=== PATIENT | male | born 1960 | race Hispanic/Latino ===

== ENCOUNTER → 2018-12-06 | Outpatient (CLI) | payer BC ==
[~2018-12-06] MED LIST: ALLOPURINOL100 MG PO; HYDROCHLOROTH12.5 M1 PO; LOSARTAN POTASS25 MG PO; METOPROLOL TART50 MG PO; ONDANSETRO4 MG/UDTAB PO; POTASSIUM CHLO10 ME1 PO; SOD CITRATE-CIT15 ML PO; STOOL SOFTENER; TYLENOL WITH C1 EACH PO
--- NOTE | 2018-12-06 09:26 | Diagnostic Imaging Report ---
Exam: KUB - 2 views Clinical History: Renal calculus. Comparison: None. Findings: There are adjacent 6 mm and 7 mm calcifications overlying the expected location of the right proximal ureter at the inferior aspect of the L3 level. There is a 5 mm calcification overlying the left lower kidney. There is a 3 mm calcification at the left L3 level which may be in the proximal ureter or may be enteric. Nonobstructive bowel gas pattern. No acute osseous abnormality. Impression: Suspected 5 mm left lower pole renal stone and adjacent 6 and 7 mm right proximal ureteral stones. A 3 mm proximal left ureteral stone versus enteric calcification. Signed by: Dr. Jose Marshall MD on 12/06/2018 9:23 AM
== END ==
LOC: RAD 08:43
PROVIDERS: ATTEND Urology
DX: N20.0 Calculus of kidney (principal)
CPT/HCPCS: 74018

== ENCOUNTER → 2019-01-10 | Day surgery (SDC) | payer BC ==
--- NOTE | 2019-01-08 15:45 | Diagnostic Imaging Report ---
EXAMINATION: CHEST 2 VIEWS INDICATION: Pre-operative. COMPARISON: None FINDINGS: TUBES and LINES: None. LUNGS: Lungs are well inflated. Lungs are clear. There is no evidence of pneumonia or pulmonary edema. PLEURA: No pleural effusion or pneumothorax. HEART AND MEDIASTINUM: The cardiomediastinal silhouette is moderately enlarged. Atherosclerotic calcifications of the aortic arch. BONES AND SOFT TISSUES: No acute osseous abnormality. UPPER ABDOMEN: No free air under the diaphragm. IMPRESSION: Cardiomegaly without pulmonary edema. Signed by: Dr. Jose Marshall MD on 01/08/2019 3:42 PM
[2019-01-08 17:02] LABS: BASOPHILS % 0.8 % (0.0-1.0); EOSINOPHILS # (AUTO) 0.2 (0.0-0.4); HEMATOCRIT 42.5 % (38.2-49.6); HEMOGLOBIN 14.6 g/dL (14.0-18.0); LYMPHOCYTES # (AUTO) 1.5 (1.0-3.2); LYMPHOCYTES % 30.2 % (18.0-39.1); MEAN CORPUSCULAR HEMOGLOBIN 30.5 pg (28-32); MEAN CORPUSCULAR HGB CONC 34.4 g/dL (31-35); MEAN CORPUSCULAR VOLUME 88.9 fL (81-99); MONOCYTES # (AUTO) 0.6 (0.2-0.8); MONOCYTES % 11.9 % (4.4-11.3); NEUTROPHILS # (AUTO) 2.7 (2.1-6.9); NEUTROPHILS % 52.7 % (38.7-80.0); PLATELET COUNT 174 x10e3/uL (140-360); RED BLOOD COUNT 4.78 x10e6/uL (4.3-5.7)
[~2019-01-10] MED LIST changes: +ALBUTEROL SULFATE HFA 8GM INHALATION AEROSOL INH ONE; +ATORVASTATIN CA20 MG PO; +BELLADONNA/OPIUM 60 MG SUPP PR ONE; +CEFAZOLIN SOD 1 GM/NS 50ML 50 ML IV ONE; +DESFLURANE 240 ML BTL INH ONE; +DEXAMETHASONE SOD PHOS INJ 4 MG/ML VIAL ONE; +EPHEDRINE SULFATE INJ 50 MG/10 ML SYR ONE; +FENOFIBRATE145 MG PO; +FENTANYL CITRATE/PF 100MCG/2 ML INJ ONE; +IOPAMIDOL 610MG/1ML 300 MG/ML VIAL IV ONE; +LIDOCAINE HCL 2% LOCAL INJ 5 ML SDV VIAL INJ ONE; +MIDAZOLAM HCL 2 MG/2 ML VIAL ONE; +ONDANSETRON HCL INJ 2MG/ML 2ML 2 MG/ML VIAL ONE; +PROPOFOL IV EMULSION 10 MG/ML 20 ML VIAL ONE; +SUCCINYLCHOLINE 200 MG/10 ML SYR ONE
--- OUTSIDE RECORDS SUMMARY | 2019-01-10 07:02 | XMS REPORT ---
Author Author [facility] Address Unknown Phone Unavailable Care Team Providers Care Skip Loader Name Role Phone DEBBIE FISCHER Unavailable Unavailable Problems This patient has no known problems. Allergies, Adverse Reactions, Alerts This patient has no known allergies or adverse reactions. Medications This patient has no known medications. Results Test Description Test Time Test Comments Text Results Atomic Results Result Comments CHEST 2 VIEWS 2019-01-08 15:39:00 [place] [address] Patient Name: JACKIE ARREAGA MR #: [id number] : 1960 Age/Sex: 58/M Req #: [id number] [facility] Physician: Ordered by: DEBBIE FISCHER MD Report #: [id number] Location: OR Room/Bed: Procedure: [id number] DX/CHEST 2 VIEWS Exam Date: 01/08/19 Exam Time: 1500 REPORT STATUS: Signed EXAMINATION: CHEST 2 VIEWS INDICATION: Pre-operativ e. COMPARISON: None FINDINGS: TUBES and LINES: None. LUNGS: Lungs are well inflated. Lungs are clear. There is no evidence of pneumonia or pulmonary edema. PLEURA: No pleural effusion or pneumothorax. HEART AND MEDIASTINUM: The cardiomediastinal silhouette is moderately enlarged. Atherosclerotic calcifications of the aortic arch. BONES AND SOFT TISSUES: No acute osseous abnormality. UPPER ABDOMEN: No free air under the diaphragm. IMPRESSION: Cardiomegaly without pulmonary edema. Signed by: Dr. Denys Gamble MD on 01/08/2019 3:42 PM Dictated By: DENYS GAMBLE MD 41 Transcribed By: BENTLEY on 01/08/191541 COPY TO: DEBBIE FISCHER MD ABDOMEN-1VIEW (KUB) 2018-12-06 09:16:00 [place] [address] Patient Name: JACKIE ARREAGA MR #: [id number] : 1960 Age/Sex: 58/M Req #: [id number] Adm Physician: Ordered by: DEBBIE FISCHER MD Report #: [id number] Location: [facility] Room/Bed: Procedure: [id number] DX/ABDOMEN-1VIEW (KUB) Exam Date: Exam Time: REPORT STATUS: Signed Exam: KUB - 2 views Clinical History: Renal calculus. Com parison: None. Findings: There are adjacent 6 mm and 7 mm calcifications overlying the expected location of the right proximal ureter at the inferior aspect of the L3 level. There is a 5 mm calcification overlying the left lower kidney. There is a 3 mm calcification at the left L3 level which may be in the proximal ureter or may be enteric. Nonobstructive bowel gas pattern. No acute osseous abnormality. Impression: Suspected 5 mm left lower pole renal stone and adjacent 6 and 7 mm right proximal ureteral stones. A 3 mm proximal left ureteral stone versus enteric calcification. Signed by: Dr. Denys Gamble MD on 12/06/2018 9:23 AM Dictated By: DENYS GAMBLE MD 2 Transcribed By: BENTLEY on 12/06/18922 COPY TO: DEBBIE FISCHER MD
[2019-01-10 11:30] VITALS: BP 141/78
--- NOTE | 2019-01-10 23:03 | Operative Report ---
DATE OF PROCEDURE: 01/10/2019 SURGEON: Evelia Troy MD SERVICE: Urology. PREOPERATIVE DIAGNOSES: 1. Suspected stones in the right kidney. 2. Microhematuria, postoperative stones were not identified. Calcifications on the right side out of the collecting system. PROCEDURE: 1. Cystoscopy and retrograde pyelograms under fluoroscopic control. 2. Interpretation of x-ray, radiologist not present. 3. Supervision of fluoroscopy. TOP FRAME MAKER: None. ANESTHESIA: General. CLINICAL INDICATION NOTE: This is a 58-year-old patient, KUB suggests a stone on the right side. He did have stones in the past. The patient was brought for reassessment and possible lithotripsy. DESCRIPTION OF THE PROCEDURE AND FINDING: After proper level of anesthesia was achieved, the patient was placed in the supine position and fluoroscopy failed to localize clearly the stone with the possibility that this is out of the collecting system. The patient was placed in lithotomy position, prepped and draped in a sterile fashion. Cystoscopy was done. An open-end catheter was inserted to the right side and retrograde pyelogram did not demonstrate the stone. The calcification appeared to be out of the ureteropelvic junction. The left side is unremarkable. The patient tolerated the procedure well and was transferred in satisfactory condition to recovery room. He will be followed as an outpatient. Evelia Troy MD NH/MODL /[id number]
== END | disposition home or self-care (01) ==
LOC: OR 06:50
PROVIDERS: ATTEND Urology
DX: R31.29 Other microscopic hematuria (principal); N28.89 Other specified disorders of kidney and ureter; Z87.442 Personal history of urinary calculi; R06.83 Snoring; I10 Essential (primary) hypertension; E78.5 Hyperlipidemia, unspecified; K21.9 Gastro-esophageal reflux disease without esophagitis; Z01.810 Encounter for preprocedural cardiovascular examination; Z01.812 Encounter for preprocedural laboratory examination; Z01.818 Encounter for other preprocedural examination
CPT/HCPCS: 36415; 52005; 71046; 85025; 93005; C1758; J0690; J1100; J2001; J2250; J2405; J2704; Q9967

== ENCOUNTER → 2019-03-15 | Outpatient (CLI) | payer BC ==
[~2019-03-15] MED LIST changes: -ALBUTEROL SULFATE HFA 8GM INHALATION AEROSOL INH ONE; -BELLADONNA/OPIUM 60 MG SUPP PR ONE; -CEFAZOLIN SOD 1 GM/NS 50ML 50 ML IV ONE; -DESFLURANE 240 ML BTL INH ONE; -DEXAMETHASONE SOD PHOS INJ 4 MG/ML VIAL ONE; -EPHEDRINE SULFATE INJ 50 MG/10 ML SYR ONE; -FENTANYL CITRATE/PF 100MCG/2 ML INJ ONE; -IOPAMIDOL 610MG/1ML 300 MG/ML VIAL IV ONE; -LIDOCAINE HCL 2% LOCAL INJ 5 ML SDV VIAL INJ ONE; -MIDAZOLAM HCL 2 MG/2 ML VIAL ONE; -ONDANSETRON HCL INJ 2MG/ML 2ML 2 MG/ML VIAL ONE; -PROPOFOL IV EMULSION 10 MG/ML 20 ML VIAL ONE; -SUCCINYLCHOLINE 200 MG/10 ML SYR ONE
--- NOTE | 2019-03-15 09:42 | Diagnostic Imaging Report ---
CT of the abdomen and pelvis, without contrast, 03/15/2019. History: Renal calculus. Comparison: CT 10/21/2016. Abdominal x-ray 12/06/2018. Technique: Multidetector CT scanning of the abdomen and pelvis was performed from the level of the lung bases to the inferior pubic rami without intravenous or oral contrast. Coronal and sagittal multiplanar reformations were obtained. RADIATION DOSE: Total DLP: 854 mGy*cm Dose modulation, iterative reconstruction, and/or weight based adjustment of the mA/kV was utilized to reduce the radiation dose to as low as reasonably achievable. Discussion: Examination is limited without contrast. Lung bases: There is bibasilar atelectasis. Calcified granulomata are present at the left lung base. Abdomen: There is no evidence of nephrolithiasis or hydronephrosis involving either kidney. Both ureters are normal in size. Cortical scarring is again noted involving the inferior aspect of the left kidney. There is diffuse low-density of the liver. The gallbladder, biliary tree, spleen, pancreas, and adrenal glands are unremarkable. The abdominal aorta is within normal limits. There is no bowel dilatation. There is no evidence of adenopathy or free fluid. Calcified mesenteric lymph nodes are present accounting for the calcifications seen on x-ray. A small fat-containing umbilical hernia is present. Pelvis: The bladder, prostate, and seminal vesicles are unremarkable. Small fat-containing inguinal hernias are present bilaterally. There is no evidence of free fluid or adenopathy. Bones and soft tissues: Degenerative changes are present throughout the lumbar spine without evidence of lytic or sclerotic lesion. IMPRESSION: 1. No evidence of nephrolithiasis. Calcifications seen on x-ray are secondary to calcified mesenteric nodes.. 2. Fatty infiltration of the liver. 3. Small fat-containing umbilical hernia. Otherwise unremarkable noncontrast exam. Signed by: Rey Jurado on 03/15/2019 9:38 AM
== END ==
LOC: CT 08:43
PROVIDERS: ATTEND Urology
DX: N20.0 Calculus of kidney (principal)
CPT/HCPCS: 74176

== ENCOUNTER → 2020-06-23 | Outpatient (CLI) | payer BC ==
[~2020-06-23] MED LIST changes: +DIATRIZOATE MEGL/DIATRIZOA SOD 30 ML BTL PO ONE; +IOPAMIDOL 370 MG/ML 200 ML INFUS..BTL INJ ONE; +SODIUM CHLORIDE 0.9% 50ML 50 ML ONE
--- NOTE | 2020-06-23 13:14 | Diagnostic Imaging Report ---
ADDENDUM #1 Please note there are 2 hypoattenuating areas in the liver dome one on the right and one on the left side. In the absence of contrast medium, the exact nature is difficult to ascertain. Liver protocol CT or MRI may be obtained for further evaluation. Signed by: Saleem Austin MD on 06/23/2020 1:26 PM ORIGINAL REPORT EXAM: CT ABDOMEN AND PELVIS WITHOUT CONTRAST FOR RENAL STONES CLINICAL INDICATION: Suspected calculus of kidney TECHNIQUE: CT abdomen and pelvis was performed, without IV or oral contrast, as per department renal stone protocol. Axial, sagittal, and coronal reconstructions were obtained. IV CONTRAST: Not administered, limiting sensitivity of this exam for evaluation of solid visceral organs, vascular structures, and retroperitoneum. ORAL CONTRAST:Not administered, limiting sensitivity of this exam for evaluation of bowel, retroperitoneum, and intraabdominal fluid collections. RADIATION DOSE REDUCTION: This exam was performed according to the departmental dose-optimization program which includes automated exposure control, adjustment of the mA and/or kV according to patient size and/or use of iterative reconstruction technique. COMPARISON: None FINDINGS: LOWER CHEST: Aortic annulus and coronary artery calcification. RIGHT KIDNEY: Normal size and contour. No nephrolithiasis. No hydronephrosis. RIGHT URETER: Normal course and caliber. No ureterolithiasis. LEFT KIDNEY: Normal size and contour. No nephrolithiasis. No hydronephrosis. LEFT URETER: Normal course and caliber. No ureterolithiasis. URINARY BLADDER: Unremarkable. No calculi. LIVER: Fatty infiltration of the liver. GALLBLADDER: No pathologic process. BILE DUCTS: No pathologic process. PANCREAS: No pathologic process. SPLEEN: No pathologic process. ADRENALS: No pathologic process. GASTROINTESTINAL TRACT: No pathologic process. APPENDIX: No inflammatory changes in region of appendix.] LYMPH NODES: No lymphadenopathy. PERITONEUM/MESENTERY: No free air, significant free fluid, mass or fluid collection. Small calcified mesenteric lymph nodes. 6 VESSELS: No vascular abnormality. ADDITIONAL RETROPERITONEAL FINDINGS: None. REPRODUCTIVE ORGANS: No pathologic process. ABDOMINAL AND PELVIC MARIA: Small fat-containing umbilical hernia area and MUSCULOSKELETAL: No pathologic process. ADDITIONAL FINDINGS: None. IMPRESSION: No evidence of urinary tract calculi. Standardized Report: [id number]. Signed by: Saleem Austin MD on 06/23/2020 1:11 PM
--- NOTE | 2020-06-23 16:31 | Diagnostic Imaging Report ---
EXAM: CT ABDOMEN WITH CONTRAST CLINICAL INDICATION: Right upper quadrant pain. Previously stone protocol CT was performed of abdomen and pelvis. A contrast-enhanced abdominal CT was performed in addition at the request of the ordering doctor. TECHNIQUE: CT abdomen was performed to the iliac crests, following the administration of contrast, as per department protocol. Axial, sagittal, and coronal reconstructions were obtained. IV CONTRAST: 100 cc of Isovue 300 ORAL CONTRAST: Not administered, limiting sensitivity of this exam for evaluation of bowel, retroperitoneum, and intraabdominal fluid collections. RADIATION DOSE REDUCTION: This exam was performed according to the departmental dose-optimization program which includes automated exposure control, adjustment of the mA and/or kV according to patient size and/or use of iterative reconstruction technique. COMPARISON: None FINDINGS: LOWER CHEST: No pathologic process in imaged portion of lower chest LIVER: No significant pathologic process GALLBLADDER: Unremarkable BILE DUCTS: No pathologic process. PANCREAS: No pathologic process. SPLEEN: No pathologic process. A small splenule at the inferior pole of the spleen is identified. ADRENALS: No pathologic process. KIDNEYS: Wall 17 mm intracortical renal hypodensity in the midpole region laterally. It is seen to the best advantage on coronal image. This cyst has some mural nodularity. Further evaluation should be performed with contrast-enhanced renal protocol CT or MRI. Bilateral small cortical renal cysts, too small to characterize. There is thinning of the posterior inferior left renal cortex situated in close proximity to the calyx. This suggests prior infection related atrophy. GASTROINTESTINAL TRACT: No pathologic process. LYMPH NODES: A few calcified lymph nodes in the mesentery. PERITONEUM/MESENTERY: No free air, significant free fluid, mass or fluid collection. VESSELS: No vascular abnormality. ADDITIONAL RETROPERITONEAL FINDINGS: None. ABDOMINAL WALL: A small fat-containing umbilical hernia. MUSCULOSKELETAL: No pathologic process. ADDITIONAL FINDINGS: None. IMPRESSION: Complex left renal cortical cyst needing further evaluation as described above. Also see the previous report dictated the same date. Standardized Report: [id number]. Signed by: Saleem Austin MD on 06/23/2020 4:28 PM
--- NOTE | 2020-06-23 19:15 | Diagnostic Imaging Report ---
Hepatobiliary Scan with Gallbladder Ejection Fraction Reason for exam: RUQ pain Report: Following intravenous administration of 6.6 millicuries of Tc-99m mebrofenin, dynamic images of the abdomen in the anterior projection were obtained through 60 minutes. An additional static image was obtained at 90 minutes. Sincalide (CCK analog) 2.0 micrograms was administered intravenously over 30 minutes with additional imaging for determination of gallbladder ejection fraction. Perfusion to the liver is normal. Extraction of tracer from the blood pool by the liver parenchyma is normal. Tracer is seen promptly within the biliary tract. Tracer is seen in the small bowel by 12 minutes post injection of tracer. The gallbladder does not fill during the initial 60 minutes of imaging but does fill adequately by 90 minutes. The gallbladder ejection fraction with administration of sincalide is 81% (normal greater than 40%). Impression: 1. Filling of the gallbladder excludes the diagnosis of acute cystic duct obstruction/acute cholecystitis. 2. Normal gallbladder ejection fraction of 81% does not support the clinical diagnosis of chronic cholecystitis/gallbladder dyskinesia. Signed by: Dr. Kelley Valdes M.D. on 06/23/2020 7:11 PM
== END ==
LOC: NM 09:15
PROVIDERS: ATTEND Surgery
DX: R10.11 Right upper quadrant pain (principal)
CPT/HCPCS: 74160; 74176; 78227; A9537; Q9967

== ENCOUNTER 2020-07-15 08:18 | Observation (INO) | payer BC ==
[~2020-07-15] VITALS: Ht 157.5 cm; Wt 107.5 kg
[~2020-07-15 08:18] MED LIST changes: -DIATRIZOATE MEGL/DIATRIZOA SOD 30 ML BTL PO ONE; +FLOMAX0.4 MG PO; +FUROSEMIDE40 MG PO; +GABAPENTIN300 MG PO; -IOPAMIDOL 370 MG/ML 200 ML INFUS..BTL INJ ONE; +LOSARTAN POTAS100 MG PO; +POTASSIUM CHLO20 ME1 PO; +ROPIVACAINE 246.25 MG, EPINEPHRINE HCL 1:1000 1ML 0.5 MG, CLONIDINE HCL 0.08 MG, KETORO... INJ ONE; -SODIUM CHLORIDE 0.9% 50ML 50 ML ONE
[2020-07-15] MEDS ORDERED: VANCOMYCIN HCL 1,000 MG ONE (09:46)
[2020-07-15] MEDS ORDERED: TRANEXAMIC ACID 1,000 MG/10 ML ML ONE (09:47)
[2020-07-15] MEDS ORDERED: SODIUM CHLORIDE 0.9% 500ML 500 ML ONE (09:47)
[2020-07-15] MEDS ORDERED: CELECOXIB 200 MG CAP ONE (09:49)
[2020-07-15] MEDS ORDERED: GABAPENTIN 300 MG CAP ONE (09:50)
[2020-07-15] MEDS ORDERED: CEFAZOLIN SOD 1 GM/NS 50ML 100 ML IV ONE (09:50)
[2020-07-15] MEDS ORDERED: DEXAMETHASONE SOD PHOS 10 MG/1 ML VIAL ONE (09:50)
[2020-07-15] MEDS ORDERED: KETOROLAC TROMETHAMINE 30 MG/ML VIAL IV PRN (12:00)
[2020-07-15] MEDS ORDERED: ACETAMINOPHEN 650 MG SUPP PR PRN (12:00)
[2020-07-15] MEDS ORDERED: DIPHENHYDRAMINE HCL INJ 50 MG/ML VIAL IV PRN (12:00)
[2020-07-15] MEDS ORDERED: HYDROCODONE/APAP 5MG-325MG TAB PO PRN (12:00)
[2020-07-15] MEDS ORDERED: DOCUSATE SODIUM 100 MG CAP PO PRN (12:00)
[2020-07-15] MEDS ORDERED: SODIUM CHLORIDE 0.9% 1000ML 1,000 ML IV SCH (12:00)
[2020-07-15] MEDS ORDERED: HYDROCODONE/APAP 7.5MG-325MG 1 EA TAB PO PRN (12:00)
[2020-07-15] MEDS ORDERED: ONDANSETRON HCL INJ 2MG/ML 2ML 2 MG/ML VIAL IV PRN (12:00)
[2020-07-15] MEDS ORDERED: MEPERIDINE HCL INJ 25 MG/ML VIAL ONE (12:13)
[2020-07-15] MEDS ORDERED: ROPIVACAINE 0.5% 5 MG/ML 30 ML SDV ONE (12:27)
[2020-07-15] MEDS ORDERED: LIDOCAINE 2%/ EPINEPHRINE 20ML MDV ONE (12:27)
[2020-07-15] MEDS ORDERED: HYDROMORPHONE 1MG/1ML INJ ONE (12:33)
[2020-07-15] MEDS ORDERED: METOCLOPRAMIDE HCL 10 MG/2ML VIAL ONE (13:21)
[2020-07-15] MEDS ORDERED: SEVOFLURANE INHAL SOLN 250 ML PEN BTL ONE (13:21)
[2020-07-15] MEDS ORDERED: FENTANYL CITRATE/PF 100MCG/2 ML INJ ONE (13:21)
[2020-07-15] MEDS ORDERED: ONDANSETRON HCL INJ 2MG/ML 2ML 2 MG/ML VIAL ONE (13:21)
[2020-07-15] MEDS ORDERED: MIDAZOLAM HCL 2 MG/2 ML VIAL ONE (13:21)
[2020-07-15] MEDS ORDERED: LIDOCAINE HCL 2% LOCAL INJ 5 ML SDV VIAL INJ ONE (13:21)
[2020-07-15] MEDS ORDERED: EYE LUBRICANT OPTH OINT 3.5GM TUBE OP ONE (13:21)
[2020-07-15] MEDS ORDERED: PROPOFOL IV EMULSION 10 MG/ML 20 ML VIAL ONE (13:21)
[2020-07-15] MEDS ORDERED: DEXAMETHASONE SOD PHOS INJ 4 MG/ML VIAL ONE (13:21)
[2020-07-15 14:25] VITALS: BP 139/80
[2020-07-15] MEDS ORDERED: ACETAMINOPHEN 1000 MG/100 ML IV PRN (15:00)
[2020-07-15 16:00] VITALS: BP 139/80
[2020-07-15] MEDS: CEFAZOLIN SOD 1 GM/NS 50ML 50 ML IV SCH (16:12)
[2020-07-15] MEDS: ASPIRIN 325 MG TAB PO SCH (16:17)
[2020-07-15] MEDS: GABAPENTIN 300 MG CAP PO SCH (16:17)
[2020-07-15] MEDS: CELECOXIB 100 MG CAP PO SCH (16:17)
[2020-07-15 19:45] VITALS: BP 139/80
[2020-07-15 20:00] VITALS: BP 125/62
[2020-07-15] MEDS ORDERED: ATORVASTATIN 20 MG TAB PO SCH (21:00)
[2020-07-15] MEDS ORDERED: ATORVASTATIN 40 MG TAB PO SCH (21:00)
[2020-07-15] MEDS ORDERED: ZOLPIDEM TARTRATE 5 MG TAB PO PRN (21:00)
[2020-07-16] VITALS: BP 129/67
[2020-07-16] MEDS: CEFAZOLIN SOD 1 GM/NS 50ML 50 ML IV SCH ×2 (02:00→10:28)
[2020-07-16 04:00] VITALS: BP 126/70
[2020-07-16 05:07] LABS: HEMATOCRIT 43.2 % (38.2-49.6); HEMOGLOBIN 14.2 g/dL (14.0-18.0)
[2020-07-16 08:00] VITALS: BP 121/69
[2020-07-16] MEDS: ASPIRIN 325 MG TAB PO SCH (08:19)
[2020-07-16] MEDS: CELECOXIB 100 MG CAP PO SCH (08:20)
[2020-07-16] MEDS: GABAPENTIN 300 MG CAP PO SCH (08:20)
[2020-07-16] MEDS ORDERED: POTASSIUM CHLORIDE 20 MEQ TAB CR PO SCH (09:00)
[2020-07-16] MEDS ORDERED: LOSARTAN POTASSIUM 25 MG TAB PO SCH (09:00)
[2020-07-16] MEDS ORDERED: FENOFIBRATE 145 MG TAB PO SCH (09:00)
[2020-07-16] MEDS ORDERED: LOSARTAN POTASSIUM 100 MG TAB PO SCH (09:00)
[2020-07-16] MEDS ORDERED: TAMSULOSIN HCL 0.4 MG CAP PO SCH (09:00)
[2020-07-16] MEDS ORDERED: METOPROLOL TARTRATE 50 MG TAB PO SCH (09:00)
[2020-07-16] MEDS ORDERED: FUROSEMIDE 40 MG TAB PO SCH (09:00)
[2020-07-16 09:04] VITALS: BP 121/69
[2020-07-16 12:22] VITALS: BP 127/73
[2020-07-16] MEDS ORDERED: ONDANSETRON HCL 4 MG ORAL DISINTEGRATING TAB PO PRN (12:30)
[2020-07-16] MEDS ORDERED: CELECOXIB 200 MG CAP PO SCH (17:00)
== END 2020-07-16 13:03 | disposition home or self-care (01) ==
LOC: OR 08:18 → PACU V 11:59 → MED/SURG 14:31
PROVIDERS: ADMIT Specialist; ATTEND Specialist
DX: M17.11 Unilateral primary osteoarthritis, right knee (principal); D64.9 Anemia, unspecified; N40.0 Benign prostatic hyperplasia without lower urinary tract symptoms; E78.5 Hyperlipidemia, unspecified; I10 Essential (primary) hypertension; Z01.812 Encounter for preprocedural laboratory examination; Z20.828 Contact with and (suspected) exposure to other viral communicable diseases; K21.9 Gastro-esophageal reflux disease without esophagitis
CPT/HCPCS: 27447; 36415; 73560; 85014; 85018; 86850; 86900; 86920; 97116 ×2; 97161; 97530; C1713; G0378 ×2; J0171; J0690 ×2; J1100 ×2; J1885; J2001 ×2; J2175; J2250; J2405; J2704; J2765; J2795; J3010; J3370; J7040; U0002; J1170

== ENCOUNTER 2020-09-21 07:17 | Emergency (ER) | payer BC ==
[~2020-09-21] VITALS: Ht 157.5 cm; Wt 107.5 kg
[~2020-09-21 07:17] MED LIST changes: -ROPIVACAINE 246.25 MG, EPINEPHRINE HCL 1:1000 1ML 0.5 MG, CLONIDINE HCL 0.08 MG, KETORO... INJ ONE
[2020-09-21] MEDS ORDERED: ONDANSETRON HCL INJ 2MG/ML 2ML 2 MG/ML VIAL IV STA (07:26)
[2020-09-21] MEDS ORDERED: SODIUM CHLORIDE 0.9% 1000ML 1,000 ML IV STA (07:26)
[2020-09-21] MEDS ORDERED: PANTOPRAZOLE 40 MG 10ML VIAL IV STA (07:26)
[2020-09-21] MEDS ORDERED: DICYCLOMINE HCL 20 MG/2 ML VIAL IM ONE (07:30)
[2020-09-21 08:31] LABS: BASOPHILS # (AUTO) 0.1 (0.0-0.1); BASOPHILS % 0.8 % (0.0-1.0); EOSINOPHILS # (AUTO) 0.1 (0.0-0.4); EOSINOPHILS % 1.9 % (0.0-6.0); HEMATOCRIT 43.8 % (38.2-49.6); HEMOGLOBIN 14.5 g/dL (14.0-18.0); LYMPHOCYTES # (AUTO) 1.7 (1.0-3.2); LYMPHOCYTES % 28.6 % (18.0-39.1); MEAN CORPUSCULAR HEMOGLOBIN 29.4 pg (28-32); MEAN CORPUSCULAR HGB CONC 33.1 g/dL (31-35); MEAN CORPUSCULAR VOLUME 88.7 fL (81-99); MONOCYTES # (AUTO) 0.5 (0.2-0.8); MONOCYTES % 9.1 % (4.4-11.3); NEUTROPHILS # (AUTO) 3.5 (2.1-6.9); NEUTROPHILS % 59.4 % (38.7-80.0); PLATELET COUNT 225 x10e3/uL (140-360); RED BLOOD COUNT 4.94 x10e6/uL (4.3-5.7); RED CELL DISTRIBUTION WIDTH 14.2 % (11.7-14.4)
[2020-09-21 08:53] LABS: ALANINE AMINOTRANSFERASE 26 IU/L (0-55); ALBUMIN 3.5 g/dL (3.5-5.0); ALBUMIN/GLOBULIN RATIO 0.7 (0.8-2.0); ALKALINE PHOSPHATASE 110 IU/L (40-150); AMYLASE 93 U/L (25-125); ANION GAP 18.8 mmol/L (8-16); BLOOD UREA NITROGEN 18 mg/dL (7-26); BUN/CREATININE RATIO 18 (6-25); CARBON DIOXIDE 21 mmol/L (22-29); CHLORIDE 104 mmol/L (98-107); CREATINE KINASE 162 IU/L (30-200); CREATININE, SERUM 1.01 mg/dL (0.72-1.25); EST GLOMERULAR FILTRATION RATE > 60 ML/MIN (60-); GLUCOSE 103 mg/dL (74-118); LIPASE 52 U/L (8-78); POTASSIUM 3.8 mmol/L (3.5-5.1); SODIUM 140 mmol/L (136-145)
[2020-09-21 09:29] LABS: CLARITY,URINE CLEAR (CLEAR); COLOR,URINE YELLOW (YELLOW); KETONES,URINE TRACE (NEGATIVE); LEUKOCYTE ESTERASE ,URINE NEGATIVE (NEGATIVE); NITRITE,URINE NEGATIVE (NEGATIVE); PROTEIN,URINE DIPSTICK >=300 (NEGATIVE); URINE UROBILINOGEN 0.2 mg/dL (0.2 - 1)
[2020-09-21 09:40] LABS: BACTERIA,URINE MODERATE /HPF; EPITHELIAL CELLS,URINE MODERATE /LPF; RBC,URINE 0-5 /HPF (0-5); WBC,URINE (MAN) 21-50 /HPF (0-5)
[2020-09-21] MEDS ORDERED: CEFTRIAXONE SOD 1 GM/NS 50 ML 50 ML IV ONE (09:45)
[2020-09-21] MEDS ORDERED: CEFTRIAXONE SOD 1 GM VIAL ONE (09:55)
[2020-09-21] MEDS ORDERED: IOPAMIDOL 370 MG/ML 200 ML INFUS..BTL INJ ONE (10:08)
[2020-09-21] MEDS ORDERED: SODIUM CHLORIDE 0.9% 0 ML ONE (10:08)
[2020-09-21] MEDS ORDERED: SODIUM CHLORIDE 0.9% 100 ML ONE (10:10)
[2020-09-21 12:31] VITALS: BP 134/67
== END 2020-09-21 12:32 | disposition home or self-care (01) ==
LOC: ER 07:47
DX: R10.11 Right upper quadrant pain (principal); N39.0 Urinary tract infection, site not specified; I10 Essential (primary) hypertension; E78.5 Hyperlipidemia, unspecified; Z87.442 Personal history of urinary calculi
CPT/HCPCS: 36415; 71045; 74178; 80053; 81001; 82150; 82550; 82553; 83690; 83735; 84484; 85025; 93005; 99284; C9113; J0500; J0696 ×2; J2405; J7030; J7050; Q9967

== ENCOUNTER 2021-02-16 07:21 | Observation (INO) | payer BC, OTHER ==
[2021-02-12 09:45] LABS: BASOPHILS % 0.8 % (0.0-1.0); EOSINOPHILS # (AUTO) 0.1 (0.0-0.4); EOSINOPHILS % 1.9 % (0.0-6.0); HEMATOCRIT 41.4 % (38.2-49.6); HEMOGLOBIN 14.1 g/dL (14.0-18.0); LYMPHOCYTES # (AUTO) 1.9 (1.0-3.2); LYMPHOCYTES % 37.2 % (18.0-39.1); MEAN CORPUSCULAR HEMOGLOBIN 30.3 pg (28-32); MEAN CORPUSCULAR HGB CONC 34.1 g/dL (31-35); MEAN CORPUSCULAR VOLUME 88.8 fL (81-99); MONOCYTES # (AUTO) 0.5 (0.2-0.8); MONOCYTES % 9.7 % (4.4-11.3); NEUTROPHILS # (AUTO) 2.6 (2.1-6.9); NEUTROPHILS % 49.6 % (38.7-80.0); PLATELET COUNT 174 x10e3/uL (140-360); RED BLOOD COUNT 4.66 x10e6/uL (4.3-5.7); RED CELL DISTRIBUTION WIDTH 14.2 % (11.7-14.4)
[2021-02-12 10:06] LABS: ANION GAP 13.7 mmol/L (8-16); CALCIUM 9.2 mg/dL (8.4-10.2); CREATININE, SERUM 0.77 mg/dL (0.72-1.25); POTASSIUM 3.7 mmol/L (3.5-5.1)
[2021-02-12 11:52] LABS: PLATELET ESTIMATE ADEQUATE; PLATELET MORPHOLOGY COMMENT FEW EDTA CLUMPING; RBC MORPHOLOGY COMMENT NORMAL
[2021-02-16] VITALS (7 sets, daily range): BP systolic 106–144; BP diastolic 63–88
[~2021-02-16] VITALS: Ht 154.9 cm; Wt 106.6 kg
[~2021-02-16 07:21] MED LIST changes: +TYLENOL325 M2 PO
[2021-02-16] MEDS ORDERED: ROPIVACAINE 246.25 MG, EPINEPHRINE HCL 1:1000 1ML 0.5 MG, CLONIDINE HCL 0.08 MG, KETORO... INJ ONE ×5 (07:30)
[2021-02-16] MEDS ORDERED: CELECOXIB 200 MG CAP ONE (07:40)
[2021-02-16] MEDS ORDERED: SODIUM CHLORIDE 0.9% 50ML 100 ML ONE (07:41)
[2021-02-16] MEDS ORDERED: GABAPENTIN 300 MG CAP ONE (07:41)
[2021-02-16] MEDS ORDERED: DEXAMETHASONE SOD PHOS 10 MG/1 ML VIAL ONE (07:41)
[2021-02-16] MEDS ORDERED: Vancomycin IV 1,000 MG ONE (08:07)
[2021-02-16] MEDS ORDERED: SODIUM CHLORIDE 0.9% 500ML 500 ML ONE (08:07)
[2021-02-16] MEDS ORDERED: TRANEXAMIC ACID 1,000 MG/10 ML ML ONE (08:08)
[2021-02-16] MEDS ORDERED: ZOLPIDEM TARTRATE 5 MG TAB PO PRN (11:45)
[2021-02-16] MEDS ORDERED: KETOROLAC TROMETHAMINE 30 MG/ML VIAL IV PRN (11:45)
[2021-02-16] MEDS ORDERED: HYDROCODONE/APAP 7.5MG-325MG 1 EA TAB PO PRN (11:45)
[2021-02-16] MEDS ORDERED: ACETAMINOPHEN 650 MG SUPP PR PRN (11:45)
[2021-02-16] MEDS ORDERED: DIPHENHYDRAMINE HCL INJ 50 MG/ML VIAL IV PRN (11:45)
[2021-02-16] MEDS ORDERED: ONDANSETRON HCL INJ 2MG/ML 2ML 2 MG/ML VIAL IV PRN (11:45)
[2021-02-16] MEDS ORDERED: HYDROCODONE/APAP 5MG-325MG TAB PO PRN (11:45)
[2021-02-16] MEDS ORDERED: DOCUSATE SODIUM 100 MG CAP PO PRN (11:45)
[2021-02-16] MEDS ORDERED: FENTANYL CITRATE/PF 100MCG/2 ML INJ ONE ×2 (12:12→12:17)
[2021-02-16] MEDS ORDERED: MIDAZOLAM HCL 2 MG/2 ML VIAL ONE (12:17)
[2021-02-16] MEDS ORDERED: MORPHINE SULFATE INJ 2 MG/ML SYR ONE (12:37)
[2021-02-16] MEDS ORDERED: NEOSTIGMINE 1 MG/ML 10ML VIAL ONE (12:53)
[2021-02-16] MEDS ORDERED: GLYCOPYRROLATE INJ 0.2 MG/ML VIAL ONE (12:53)
[2021-02-16] MEDS ORDERED: PROPOFOL IV EMULSION 10 MG/ML 20 ML VIAL ONE (12:53)
[2021-02-16] MEDS ORDERED: POVIDONE IODINE 0.05% 0.05 % ML PO ONE (12:53)
[2021-02-16] MEDS ORDERED: ROCURONIUM BROMIDE 10 MG/ML 5ML VIAL IV ONE (12:53)
[2021-02-16] MEDS ORDERED: LIDOCAINE HCL 2% LOCAL INJ 5 ML SDV VIAL INJ ONE (12:53)
[2021-02-16] MEDS ORDERED: SEVOFLURANE INHAL SOLN 250 ML PEN BTL ONE (12:53)
[2021-02-16] MEDS ORDERED: BUPIVACAINE 0.25% 30ML SDV ONE (13:26)
[2021-02-16] MEDS: SODIUM CHLORIDE 0.9% 1000ML 1,000 ML IV SCH (15:09)
[2021-02-16] MEDS: ASPIRIN 325 MG TAB PO SCH (16:28)
[2021-02-16] MEDS: CELECOXIB 200 MG CAP PO SCH (16:29)
[2021-02-16] MEDS: Cefazolin 1 GM in SODIUM CHLORIDE 0.9% 50ML 50 ML IV SCH (19:45)
[2021-02-16] MEDS ORDERED: FUROSEMIDE INJ 10 MG/ML 4 ML VIAL IV ONE (20:45)
[2021-02-16] MEDS ORDERED: ATORVASTATIN 20 MG TAB PO SCH (21:00)
[2021-02-17] MEDS: Cefazolin 1 GM in SODIUM CHLORIDE 0.9% 50ML 50 ML IV SCH ×2 (02:45→10:50)
[2021-02-17 04:00] VITALS: BP 108/63
[2021-02-17 04:52] LABS: BASOPHILS % 0.2 % (0.0-1.0); HEMATOCRIT 36.1 % (38.2-49.6); HEMOGLOBIN 12.3 g/dL (14.0-18.0); LYMPHOCYTES % 8.7 % (18.0-39.1); MEAN CORPUSCULAR HEMOGLOBIN 30.1 pg (28-32); MEAN CORPUSCULAR HGB CONC 34.1 g/dL (31-35); MEAN CORPUSCULAR VOLUME 88.5 fL (81-99); MONOCYTES # (AUTO) 0.7 (0.2-0.8); MONOCYTES % 6.4 % (4.4-11.3); NEUTROPHILS # (AUTO) 9.4 (2.1-6.9); NEUTROPHILS % 84.1 % (38.7-80.0); PLATELET COUNT 282 x10e3/uL (140-360); RED BLOOD COUNT 4.08 x10e6/uL (4.3-5.7); RED CELL DISTRIBUTION WIDTH 14.1 % (11.7-14.4)
[2021-02-17 05:15] LABS: ANION GAP 14.1 mmol/L (8-16); CALCIUM 8.7 mg/dL (8.4-10.2); CREATININE, SERUM 0.92 mg/dL (0.72-1.25); POTASSIUM 4.1 mmol/L (3.5-5.1)
[2021-02-17 07:42] VITALS: BP 102/58
[2021-02-17] MEDS: CELECOXIB 200 MG CAP PO SCH (08:07)
[2021-02-17] MEDS: ASPIRIN 325 MG TAB PO SCH (08:07)
[2021-02-17] MEDS: SODIUM CHLORIDE 0.9% 1000ML 1,000 ML IV SCH ×2 (08:30)
[2021-02-17 08:54] VITALS: BP 102/58
[2021-02-17] MEDS ORDERED: TAMSULOSIN HCL 0.4 MG CAP PO SCH (09:00)
[2021-02-17] MEDS ORDERED: GABAPENTIN 300 MG CAP PO SCH (09:00)
[2021-02-17] MEDS ORDERED: FUROSEMIDE 40 MG TAB PO SCH (09:00)
[2021-02-17] MEDS ORDERED: LOSARTAN POTASSIUM 100 MG TAB PO SCH (09:00)
[2021-02-17] MEDS ORDERED: METOPROLOL TARTRATE 50 MG TAB PO SCH (09:00)
[2021-02-17] MEDS ORDERED: FENOFIBRATE 145 MG TAB PO SCH (09:00)
[2021-02-17 11:30] VITALS: BP 125/70
[2021-02-17] MEDS ORDERED: ACETAMINOPHEN 1000 MG/100 ML IV PRN (11:45)
== END 2021-02-17 12:15 | disposition home or self-care (01) ==
LOC: OR 07:21 → PACU V 11:39 → MED/SURG 13:05
PROVIDERS: ADMIT Specialist; ATTEND Specialist
DX: M17.12 Unilateral primary osteoarthritis, left knee (principal); N40.0 Benign prostatic hyperplasia without lower urinary tract symptoms; E78.5 Hyperlipidemia, unspecified; I11.0 Hypertensive heart disease with heart failure; I50.9 Heart failure, unspecified; J95.822 Acute and chronic postprocedural respiratory failure; T41.1X5A Adverse effect of intravenous anesthetics, initial encounter; Y92.234 Operating room of hospital as the place of occurrence of the external cause; R01.1 Cardiac murmur, unspecified; Z01.818 Encounter for other preprocedural examination
CPT/HCPCS: 27447; 36415 ×2; 71046 ×2; 73560; 80048 ×2; 83880; 85025 ×2; 86850; 86900; 86920; 97116 ×2; 97161; 97530; C1713 ×2; C1776 ×3; G0378 ×2; J0171; J0690 ×2; J1100; J1885; J1940; J2001; J2250; J2270; J2405; J2704; J2710; J2795; J3010; J3370; J7030; J7040

== ENCOUNTER 2021-03-26 08:39 | Outpatient (RCR) | payer BC | END 2021-03-31 | LOC: PT 08:39 | PROVIDERS: ATTEND Family Medicine | DX: M17.12 Unilateral primary osteoarthritis, left knee (principal); Z96.652 Presence of left artificial knee joint ==

== ENCOUNTER 2021-09-11 16:54 | Inpatient (IN) | payer BC ==
[~2021-09-11] VITALS: Ht 154.9 cm; Wt 113.0 kg
[2021-09-11 17:36] LABS: BASOPHILS % 0.4 % (0.0-1.0); EOSINOPHILS # (AUTO) 0.1 (0.0-0.4); EOSINOPHILS % 0.6 % (0.0-6.0); HEMATOCRIT 38.1 % (38.2-49.6); HEMOGLOBIN 12.3 g/dL (14.0-18.0); LYMPHOCYTES # (AUTO) 2.2 (1.0-3.2); LYMPHOCYTES % 23.6 % (18.0-39.1); MEAN CORPUSCULAR HEMOGLOBIN 31.3 pg (28-32); MEAN CORPUSCULAR HGB CONC 32.3 g/dL (31-35); MEAN CORPUSCULAR VOLUME 96.9 fL (81-99); MONOCYTES # (AUTO) 1.1 (0.2-0.8); MONOCYTES % 11.2 % (4.4-11.3); NEUTROPHILS % 63.4 % (38.7-80.0); PLATELET COUNT 235 x10e3/uL (140-360); RED BLOOD COUNT 3.93 x10e6/uL (4.3-5.7); RED CELL DISTRIBUTION WIDTH 14.5 % (11.7-14.4)
[2021-09-11 17:52] LABS: ALBUMIN/GLOBULIN RATIO 0.9 (0.8-2.0); ANION GAP 15.8 mmol/L (8-16); CALCIUM 8.9 mg/dL (8.4-10.2); CREATININE, SERUM 1.23 mg/dL (0.72-1.25); POTASSIUM 3.8 mmol/L (3.5-5.1)
[2021-09-11 17:55] LABS: CLARITY,URINE CLEAR (CLEAR); COLOR,URINE YELLOW (YELLOW)
[2021-09-11 17:56] LABS: LEUKOCYTE ESTERASE ,URINE NEGATIVE (NEGATIVE); NITRITE,URINE NEGATIVE (NEGATIVE); PROTEIN,URINE DIPSTICK >=300 (NEGATIVE)
[2021-09-11 17:57] LABS: KETONES,URINE NEGATIVE (NEGATIVE); URINE UROBILINOGEN 0.2 mg/dL (0.2 - 1)
[2021-09-11 17:58] LABS: CREATINE KINASE MB 3.8 ng/mL (0-5.0)
[2021-09-11 18:04] LABS: BACTERIA,URINE FEW /HPF; WBC,URINE (MAN) 0-5 /HPF (0-5)
[2021-09-11] MEDS ORDERED: SODIUM CHLORIDE 0.9% 100 ML ONE (18:11)
[2021-09-11] MEDS ORDERED: FUROSEMIDE INJ 100 MG in SODIUM CHLORIDE 0.9% 90 ML IV SCH (18:30)
[2021-09-11] MEDS ORDERED: SODIUM CHLORIDE FLUSH 10 ML SYR INJ PRN (19:15)
[2021-09-11 20:30] VITALS: BP 124/76
[2021-09-11 21:10] VITALS: BP 124/76
[2021-09-11] MEDS: FUROSEMIDE INJ 100 MG in SODIUM CHLORIDE 0.9% 90 ML IV SCH (22:20)
[2021-09-12] VITALS (8 sets, daily range): BP systolic 100–148; BP diastolic 52–91
[2021-09-12] MEDS: FUROSEMIDE INJ 100 MG in SODIUM CHLORIDE 0.9% 90 ML IV SCH ×3 (02:15→12:08)
[2021-09-12] MEDS: GABAPENTIN 100 MG CAP PO SCH ×2 (10:00→17:05)
[2021-09-12] MEDS ORDERED: PANTOPRAZOLE SOD 40 MG TABEC PO ONE (10:00)
[2021-09-12 10:15] LABS: ANION GAP 17.3 mmol/L (8-16); CALCIUM 9.2 mg/dL (8.4-10.2); CHOL/HDL RATIO 5.3 (3.9-4.7); CHOLESTEROL 288 MD/DL (0-199); CREATININE, SERUM 0.9 mg/dL (0.72-1.25); HDL CHOLESTEROL 54 MG/DL (40-60); POTASSIUM 3.3 mmol/L (3.5-5.1); TRIGLYCERIDES 507 MG/DL (0-149)
[2021-09-12 10:17] LABS: % IRON SATURATION 25 % (15-50); IRON 77 ug/dL (65-175); TOTAL IRON BINDING CAPACITY 305 ug/dL (261-478); TRANSFERRIN 218 mg/dL (174-364)
[2021-09-12] MEDS ORDERED: POTASSIUM CHLORIDE 10MEQ/100ML 200 ML IV ONE (13:30)
[2021-09-12] MEDS ORDERED: MAGNESIUM SULFATE 2GM/50ML 50 ML IV ONE (13:30)
[2021-09-12] MEDS ORDERED: SODIUM CHLORIDE 0.9% 250ML 250 ML ONE (13:46)
[2021-09-12] MEDS: FUROSEMIDE INJ 10 MG/ML 4 ML VIAL IV SCH ×2 (14:00→21:20)
[2021-09-12 14:52] LABS: CREATININE,URINE RANDOM 26.57 mg/dL (63-166)
[2021-09-12 15:15] LABS: TOTAL PROTEIN, URINE 222.7 mg/dL (1-14)
[2021-09-12] MEDS ORDERED: CELECOXIB 100 MG CAP PO SCH (17:00)
[2021-09-12] MEDS: SPIRONOLACTONE 25 MG TAB PO SCH (17:05)
[2021-09-12] MEDS: ATORVASTATIN 40 MG TAB PO SCH (21:20)
[2021-09-12] MEDS: HEPARIN SOD (PORCINE) 5,000 UNIT/ML VIAL SC SCH (21:20)
[2021-09-13] VITALS (7 sets, daily range): BP systolic 91–133; BP diastolic 57–85
[2021-09-13 06:24] LABS: BASOPHILS # (AUTO) 0.1 (0.0-0.1); BASOPHILS % 0.7 % (0.0-1.0); EOSINOPHILS # (AUTO) 0.2 (0.0-0.4); EOSINOPHILS % 1.7 % (0.0-6.0); LYMPHOCYTES # (AUTO) 2.6 (1.0-3.2); LYMPHOCYTES % 27.5 % (18.0-39.1); MEAN CORPUSCULAR HEMOGLOBIN 31.4 pg (28-32); MEAN CORPUSCULAR HGB CONC 32.5 g/dL (31-35); MEAN CORPUSCULAR VOLUME 96.6 fL (81-99); MONOCYTES # (AUTO) 1.1 (0.2-0.8); MONOCYTES % 12.1 % (4.4-11.3); NEUTROPHILS # (AUTO) 5.4 (2.1-6.9); NEUTROPHILS % 57.4 % (38.7-80.0); PLATELET COUNT 209 x10e3/uL (140-360); RED BLOOD COUNT 4.14 x10e6/uL (4.3-5.7); RED CELL DISTRIBUTION WIDTH 14.3 % (11.7-14.4)
[2021-09-13] MEDS: FUROSEMIDE INJ 10 MG/ML 4 ML VIAL IV SCH ×3 (06:37→22:00)
[2021-09-13 06:50] LABS: ALBUMIN 2.5 g/dL (3.5-5.0); ALBUMIN/GLOBULIN RATIO 0.8 (0.8-2.0); ANION GAP 17.3 mmol/L (8-16); CREATININE, SERUM 0.85 mg/dL (0.72-1.25); POTASSIUM 3.3 mmol/L (3.5-5.1)
[2021-09-13] MEDS: SPIRONOLACTONE 25 MG TAB PO SCH ×2 (08:38→16:49)
[2021-09-13] MEDS: PANTOPRAZOLE SOD 40 MG TABEC PO SCH (08:38)
[2021-09-13] MEDS: LOSARTAN POTASSIUM 25 MG TAB PO SCH (08:39)
[2021-09-13] MEDS: TAMSULOSIN HCL 0.4 MG CAP PO SCH (08:39)
[2021-09-13] MEDS: GABAPENTIN 100 MG CAP PO SCH ×2 (08:40→16:49)
[2021-09-13] MEDS: METOPROLOL TARTRATE 50 MG TAB PO SCH (08:40)
[2021-09-13] MEDS: FENOFIBRATE 145 MG TAB PO SCH (08:40)
[2021-09-13] MEDS: HEPARIN SOD (PORCINE) 5,000 UNIT/ML VIAL SC SCH ×2 (09:00→22:12)
[2021-09-13] MEDS ORDERED: POTASSIUM CHLORIDE 20 MEQ TAB CR PO STA (14:50)
[2021-09-13] MEDS: POTASSIUM CHLORIDE 10MEQ/100ML 100 ML IV SCH ×4 (16:46→19:20)
[2021-09-13] MEDS: ATORVASTATIN 40 MG TAB PO SCH (22:10)
[2021-09-14] VITALS (7 sets, daily range): BP systolic 88–118; BP diastolic 54–70
[2021-09-14] MEDS: POTASSIUM CHLORIDE 10MEQ/100ML 100 ML IV SCH ×3 (01:06→03:40)
[2021-09-14] MEDS ORDERED: SODIUM CHLORIDE 0.9% 250ML 250 ML ONE (01:24)
[2021-09-14] MEDS: FUROSEMIDE INJ 10 MG/ML 4 ML VIAL IV SCH ×3 (06:00→21:29)
[2021-09-14] MEDS: LOSARTAN POTASSIUM 25 MG TAB PO SCH (07:39)
[2021-09-14] MEDS: METOPROLOL TARTRATE 50 MG TAB PO SCH (07:39)
[2021-09-14] MEDS: SPIRONOLACTONE 25 MG TAB PO SCH ×2 (08:00→17:54)
[2021-09-14] MEDS: GABAPENTIN 100 MG CAP PO SCH ×2 (08:00→17:54)
[2021-09-14] MEDS: HEPARIN SOD (PORCINE) 5,000 UNIT/ML VIAL SC SCH ×2 (08:00→21:00)
[2021-09-14] MEDS: TAMSULOSIN HCL 0.4 MG CAP PO SCH (08:00)
[2021-09-14] MEDS: PANTOPRAZOLE SOD 40 MG TABEC PO SCH (08:00)
[2021-09-14] MEDS: FENOFIBRATE 145 MG TAB PO SCH (08:30)
[2021-09-14] MEDS: ATORVASTATIN 40 MG TAB PO SCH (21:29)
[2021-09-15] VITALS (7 sets, daily range): BP systolic 89–132; BP diastolic 51–67
[2021-09-15] MEDS: FUROSEMIDE INJ 10 MG/ML 4 ML VIAL IV SCH ×2 (06:25→13:50)
[2021-09-15] MEDS: GABAPENTIN 100 MG CAP PO SCH ×2 (09:50→16:00)
[2021-09-15] MEDS: HEPARIN SOD (PORCINE) 5,000 UNIT/ML VIAL SC SCH (09:50)
[2021-09-15] MEDS: METOPROLOL TARTRATE 50 MG TAB PO SCH (09:50)
[2021-09-15] MEDS: PANTOPRAZOLE SOD 40 MG TABEC PO SCH (09:50)
[2021-09-15] MEDS: LOSARTAN POTASSIUM 25 MG TAB PO SCH (09:50)
[2021-09-15] MEDS: SPIRONOLACTONE 25 MG TAB PO SCH ×2 (09:50→16:00)
[2021-09-15] MEDS: FENOFIBRATE 145 MG TAB PO SCH (09:50)
[2021-09-15] MEDS: TAMSULOSIN HCL 0.4 MG CAP PO SCH (09:50)
[2021-09-15 17:14] LABS: ALBUMIN 2.5 g/dL (3.5-5.0); ALBUMIN/GLOBULIN RATIO 0.6 (0.8-2.0); ANION GAP 16.6 mmol/L (8-16); CALCIUM 8.6 mg/dL (8.4-10.2); CREATININE, SERUM 1.57 mg/dL (0.72-1.25); POTASSIUM 3.6 mmol/L (3.5-5.1)
== END 2021-09-15 18:49 | disposition home or self-care (01) | DRG 700 ==
LOC: ER 17:27 → MED/SURG 20:56
PROVIDERS: ADMIT Internal Medicine; ATTEND Internal Medicine
DX: E11.22 Type 2 diabetes mellitus with diabetic chronic kidney disease (principal); E87.70 Fluid overload, unspecified; I51.7 Cardiomegaly; E78.00 Pure hypercholesterolemia, unspecified; I25.10 Atherosclerotic heart disease of native coronary artery without angina pectoris; E87.6 Hypokalemia; Z87.442 Personal history of urinary calculi; I12.9 Hypertensive chronic kidney disease with stage 1 through stage 4 chronic kidney disease, or unspecified chronic kidney disease; N18.9 Chronic kidney disease, unspecified
CPT/HCPCS: 36415; 71045; 72110; 74176; 80048; 80053; 80061; 81001; 82044; 82550; 82553; 82570; 82948; 83036; 83540; 83735; 83880; 84156; 84466; 84484; 85025; 93005; 93306; 94799; 96360; 99284; J1644; J1940; J3475; J3480; J7050; U0002